=== PATIENT | male | born 1995 | race Caucasian/White ===

== ENCOUNTER 2017-09-14 22:38 | Emergency (ER) | payer OTHER ==
[~2017-09-14] VITALS: Ht 162.6 cm; Wt 60.5 kg
[2017-09-14] MEDS ORDERED: ONDANSETRON 2MG/ML, 2ML IVPush ONE (23:00)
[2017-09-14] MEDS ORDERED: SODIUM CHLORIDE FLUSH 10ML SYR IVF ONE (23:00)
[2017-09-14] MEDS ORDERED: SODIUM CHLORIDE 0.9% 1,000ML IVBOLUS ONE (23:00)
[2017-09-14] MEDS ORDERED: MORPHINE SULFATE 4 MG/ML, 1ML IVPush PRN (23:00)
[2017-09-14] MEDS ORDERED: PROMETHAZINE 25 MG/ML, 1ML IM ONE (23:00)
[2017-09-14 23:08] LABS: MEAN CORPUSCULAR HEMOGLOBIN 30.1 pg (27.5-34.5); MEAN CORPUSCULAR VOLUME 88.4 fL (81-97); MEAN PLATELET VOLUME 7.2 fL (7.4-10.4); PLATELET COUNT 360 x10^3/uL (130-400); RED BLOOD COUNT 5.99 x10^6/uL (4.38-5.82); RED CELL DISTRIBUTION WIDTH 12.4 % (9.4-14.8)
[2017-09-14 23:19] LABS: ALANINE AMINOTRANSFERASE 39 U/L (12-78); ALBUMIN 4.2 g/dL (3.4-5.0); ANION GAP 11 mmol/L (5-15); CALCIUM 9.1 mg/dL (8.5-10.1); CHLORIDE 106 mmol/L (98-107); CREATININE 1.05 mg/dL (0.7-1.3)
[2017-09-14 23:21] LABS: ALKALINE PHOSPHATASE 62 U/L (45-117); TOTAL PROTEIN 7.7 g/dL (6.4-8.2)
[2017-09-14] MEDS ORDERED: MORPHINE SULFATE 4 MG/ML, 1ML ONE (23:23)
[2017-09-14] MEDS ORDERED: PROMETHAZINE 25 MG/ML, 1ML ONE (23:23)
[2017-09-14] MEDS ORDERED: ONDANSETRON 2MG/ML, 2ML ONE (23:23)
[2017-09-14 23:29] LABS: BASOPHILS # (AUTO) 0.02 x10^3/uL (0-0.1); BASOPHILS % (AUTO) 0 % (0-1); EOSINOPHILS # (AUTO) 0.62 x10^3/uL (0-0.4); EOSINOPHILS % (AUTO) 3 % (1-7); LYMPHOCYTES # (AUTO) 0.77 x10^3/uL (1-3.4); LYMPHOCYTES % (AUTO) 4 % (22-44); MD SCAN; MONOCYTES # (AUTO) 1.22 x10^3/uL (0.2-0.8); MONOCYTES % (AUTO) 6 % (2-9); NEUTROPHILS # (AUTO) 18.62 x10^3/uL (1.8-6.8); NEUTROPHILS % (AUTO) 88 % (42-75)
[2017-09-15 00:59] VITALS: BP 114/78
== END 2017-09-15 01:00 | disposition home or self-care (01) ==
LOC: ED 09-15 00:55
DX: K52.9 Noninfective gastroenteritis and colitis, unspecified (principal); E86.0 Dehydration; G43.A1 Cyclical vomiting, in migraine, intractable
CPT/HCPCS: 36415; 80053; 83690; 85025; 96361; 96372; 96374; 96375; 99284; J2405; J2550; J7030

== ENCOUNTER 2019-07-18 13:00 | Emergency (ER) | payer OTHER ==
[~2019-07-18] VITALS: Ht 165.1 cm; Wt 71.2 kg
[2019-07-18 13:25] LABS: BASOPHILS # (AUTO) 0.01 x10^3/uL (0-0.1); BASOPHILS % (AUTO) 0 % (0-1); EOSINOPHILS # (AUTO) 0.83 x10^3/uL (0-0.4); EOSINOPHILS % (AUTO) 8 % (1-7); LYMPHOCYTES # (AUTO) 1.75 x10^3/uL (1-3.4); LYMPHOCYTES % (AUTO) 17 % (22-44); MD NO; MEAN CORPUSCULAR HEMOGLOBIN 30.6 pg (27.0-34.8); MEAN CORPUSCULAR HGB CONC 32.9 g/dL (32.4-35.8); MEAN CORPUSCULAR VOLUME 92.9 fL (80-100); MONOCYTES # (AUTO) 0.65 x10^3/uL (0.2-0.8); MONOCYTES % (AUTO) 6 % (2-9); NEUTROPHILS # (AUTO) 7.01 x10^3/uL (1.8-6.8); NEUTROPHILS % (AUTO) 68 % (42-75); PLATELET COUNT 426 x10^3/uL (130-400); RED BLOOD COUNT 5.05 x10^6/uL (3.82-5.3); RED CELL DISTRIBUTION WIDTH 12.9 % (9.6-15.2)
[2019-07-18 13:38] LABS: ALBUMIN 4.3 g/dL (3.4-5.0); ANION GAP 5 mmol/L (5-15); CALCIUM 9.7 mg/dL (8.5-10.1); CHLORIDE 108 mmol/L (98-107)
[2019-07-18 13:45] LABS: ALANINE AMINOTRANSFERASE 20 U/L (12-78); ALKALINE PHOSPHATASE 47 U/L (45-117); BILIRUBIN,TOTAL 0.9 mg/dL (0.2-1.0); CREATININE 0.92 mg/dL (0.55-1.02)
[2019-07-18 13:47] LABS: SALICYLATE LEVEL < 1.7 mg/dL (2.8-20.0)
--- NOTE | 2019-07-18 14:16 | NUR ---
Pt given gown and blankets, instructed to undress and place belongings into pt belongings bag. sitter has form. Report to azeem Merritt.
--- NOTE | 2019-07-18 14:43 | NUR ---
3 BAGS TOTAL, 2 IN LOCKER, 1 IN SECURITY WITH PT'S LAPTOP. PT TALKING WITH SW AT THIS TIME. NAD NOTED AT THIS TIME.
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
[2019-07-18] MEDS ORDERED: LORazepam 1MG TABLET PO PRN (15:30)
--- NOTE | 2019-07-18 16:10 | NUR ---
PT GIVEN WATER FOR ADDITIONAL URINE SAMPLE.
--- NOTE | 2019-07-18 16:18 | NUR ---
Sitter remains outside for continous safety monitoring. Pt has even and ulabored respirations. Pt h as good cap refill. Pt also has stong bilateral pulses.
--- NOTE | 2019-07-18 16:33 | NUR ---
Pt given h20 po to help expedite urine sample.
--- NOTE | 2019-07-18 16:57 | NUR ---
ADDITIONAL URINE TUBE WALKED TO LAB. PT GIVEN SUICIDE APPROPRIATE DINING TRAY. NAD NOTED AT THIS TIME. TV ON. SITTER OUTSIDE OF ROOM.
[2019-07-18 16:58] LABS: AMPHETAMINE SCREEN, URINE Negative (Negative); BARBITURATE SCREEN, URINE Negative (Negative); BENZODIAZEPINE SCREEN, URINE Negative (Negative); CANNABINOID SCREEN, URINE Negative (Negative); COCAINE SCREEN, URINE Negative (Negative); METHADONE SCREEN, URINE Negative (Negative); OPIATE SCREEN, URINE Negative (Negative)
--- NOTE | 2019-07-18 18:05 | NUR ---
PT SITTING BACK IN BED WATCHING TELEVISION. NAD NOTED AT THIS TIME. ADDITIONAL WATER GIVEN. PT TAKES HORMONE REPLACEMENT PER ERMD.
[2019-07-18] MEDS ORDERED: SPIR50TA4 PO (18:12)
[2019-07-18] MEDS ORDERED: ESTR2TAB PO (18:12)
--- NOTE | 2019-07-18 18:27 | NUR ---
Ita jurado contacted @ [phone]
--- NOTE | 2019-07-18 19:08 | NUR ---
PT LAYING BACK IN BED, RESPIRATIONS EVEN AND UNLABORED ON RA. NAD NOTED AT THIS TIME. SITTER OUTSIDE OF ROOM FOR DIRECT OBSERVATION AND Q15 MIN CHECKS.
--- NOTE | 2019-07-18 20:47 | NUR ---
PT RESTING BACK IN BED, WATCHING TELEVISION. PO FLUIDS AVAILABLE AT BEDSIDE. SITTER OUTSIDE OF ROOM FOR DIRECT OBSERVATION.
--- NOTE | 2019-07-18 21:39 | NUR ---
CALLED [facility] BACK NO [employer] OPERATOR HAS COME IN YET. PROFESSOR [employer] STATED THEY DO NOT KNOW WHEN AN [employer]ER [employer]ATION OPERATOR WILL BE ABLE TO COME IN THEY CAN ONLY RELAY A MESSAGE TO THEM. MESSAGE LEFT FOR [employer]ER [employer] OPERATOR TO COME IN.
--- NOTE | 2019-07-18 21:46 | NUR ---
Pt resting in room. Pt has equal chest rise, good cap refill and unlabored breathing. Pt has drug safety assistant outside room for continous monitoring.
--- NOTE | 2019-07-18 21:51 | NUR ---
Call from Dr Quintana, per pt suitable for [facility] to be seen by Dr Byrd. TP RN aware. Pt resting in bed reading book. NAD noted at this time. Respirations even and unlabored on ra. Sitter outside of room for direct observation and q15 min checks.
--- NOTE | 2019-07-18 22:13 | NUR ---
PT INFO FAXED TO [facility]
--- NOTE | 2019-07-18 22:15 | NUR ---
PT AMBULATES ABOUT ROOM, NAD NOTED AT THIS TIME. PT DENIES ANY NEEDS AT THIS TIME. SITTER OUTSIDE OF ROOM FOR OBSERVATION AND Q15 MIN CHECKS.
--- NOTE | 2019-07-18 23:21 | NUR ---
CALLED [facility] FOR UPDATE ON PT ADMISSION, SPOKE WITH CHAD WHO STATED THEY NEED TO VERIFY PT INFO AND SHE NEEDS TO SPEAK WITH HER DIRECTOR BEFORE WILL ACCEPT PT.
[2019-07-18] MEDS ORDERED: ALBUTEROL SULFATE 2.5 MG/3 ML ONE (23:34)
[2019-07-19] MEDS ORDERED: ALBUTEROL SULFATE 2.5 MG/3 ML NPPB PRN (01:00)
--- NOTE | 2019-07-19 01:54 | NUR ---
THROUGHPUT RN: [facility] ACCEPTED PT. REPORT HAS BEEN GIVEN TO ESTEFANIA ESPINOZA AT [facility]. EMS TRANSPORT SET UP FOR ESTIMATED ARRIVAL OF 0230. PRIMARY RN AWARE.
[2019-07-19 02:26] VITALS: BP 118/72
== END 2019-07-19 02:47 ==
LOC: ED 16:26
DX: R45.851 Suicidal ideations (principal)
CPT/HCPCS: 36415; 80053; 80307; 84703; 85025; 94640; 99285